=== PATIENT | female | born 1990 | race Caucasian/White ===

== ENCOUNTER 2022-10-24 11:22 | Emergency (ER) | payer OTHER, SELFPAY ==
[2022-10-24 11:41] VITALS: BP 127/81; PULSE 70; RESP 16; TEMP 36.6; O2SAT 98
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
== END 2022-10-24 13:16 | disposition home or self-care (01) ==
PROVIDERS: Emergency Provider Physician Assistant
DX: S20.219A Contusion of unspecified front wall of thorax, initial encounter (principal); V89.2XXA Person injured in unspecified motor-vehicle accident, traffic, initial encounter
CPT/HCPCS: 71045; 99283